=== PATIENT | male | born 1965 | race Caucasian/White ===

== ENCOUNTER 2017-11-26 11:05 | Emergency (ER) | payer OTHER ==
[~2017-11-26] VITALS: Ht 177.8 cm; Wt 86.2 kg
[2017-11-26 11:09] VITALS: BP 145/95
--- NOTE | 2017-11-26 11:15 | NUR ---
BIB [employer] [employer] [facility] FOR C/O ETOH WITHDRAWAL. PT STATES HE WENT ON A 10 DAY BINGE DRINKING STREAK, STOPPED YESTERDAY AT 1600 AND SINCE THEN HE HAS HAD TREMORS, N/V AND ANXIETY. PT DENIES SI/HI, STATES HE WAS 3 MONTHS CLEAN PRIOR TO THIS RELAPSE. ACTIVELY SEEKING HELP WITH REHAB. HX: ETOH ABUSE, HTN, ALCOHOL SZ'S.
[2017-11-26] MEDS ORDERED: ONDANSETRON 4 MG/2 ML VIAL IVP ONE (11:20)
[2017-11-26] MEDS ORDERED: THIAMINE 200 MG/2 ML VIAL IV ONE (11:20)
[2017-11-26] MEDS ORDERED: MULTIVITAMIN 1 TAB PO ONE (11:20)
[2017-11-26] MEDS ORDERED: LORazepam 1 MG TAB PO ONE (11:20)
[2017-11-26] MEDS ORDERED: NACL 0.9% 2,000 ML IV ONE (11:20)
[2017-11-26 11:43] LABS: BASOPHILS % (AUTO) 0.5 % (0.0-2.0); EOSINOPHILS % (AUTO) 0.4 % (0.0-4.0); HEMATOCRIT 40.7 % (36-52); HEMOGLOBIN 13.5 g/dL (12.0-18.0); LYMPHOCYTES # (AUTO) 1.3 K/uL (2.0-11.5); LYMPHOCYTES % (AUTO) 20.4 % (20.5-51.1); MEAN CORPUSCULAR HEMOGLOBIN 29 pg (27-31); MEAN CORPUSCULAR HGB CONC 33 g/dL (33-37); MEAN CORPUSCULAR VOLUME 88.4 fL (80-94); MONOCYTES # (AUTO) 0.4 K/uL (0.8-1.0); MONOCYTES % (AUTO) 5.7 % (1.7-9.3); NEUTROPHILS # (AUTO) 4.7 K/uL (1.8-7.7); PLATELET COUNT (AUTO) 154 K/uL (140-450); RED CELL DISTRIBUTION WIDTH 14.3 % (11.6-13.7); WHITE BLOOD COUNT (AUTO) 6.5 K/uL (4.8-10.8)
[2017-11-26] MEDS ORDERED: FOLIC ACID 1 MG TAB PO SCH (11:55)
[2017-11-26 11:58] LABS: ALBUMIN 3.9 g/dL (3.4-5.0); ANION GAP 17.7 (8-16); CARBON DIOXIDE 21.3 mmol/L (21-32); CREATININE 0.9 mg/dL (0.7-1.3); MAGNESIUM 1.3 mg/dL (1.8-2.4); PHOSPHORUS 3.1 mg/dL (2.5-4.9)
[2017-11-26] MEDS ORDERED: FOLIC ACID 1 MG TAB PO ONE (12:00)
[2017-11-26 13:10] LABS: APPEARANCE,URINE CLEAR (CLEAR); BILIRUBIN,URINE NEGATIVE (NEGATIVE); BLOOD, URINE TRACE-I (NEGATIVE); COLOR,URINE YELLOW (YELLOW); LEUKOCYTE ESTERASE ,URINE NEGATIVE (NEGATIVE); NITRITE, URINE NEGATIVE (NEGATIVE); UGLUCOSE NEGATIVE (NEGATIVE)
[2017-11-26 13:16] LABS: BARBITURATE, URINE NEG. ng/ml (NEG <=200); BENZODIAZEPINE, URINE NEG. ng/mL (NEG <=200); CANNABINOID, URINE NEG. ng/mL (NEG <=50); COCAINE, URINE NEG. ng/mL (NEG <=300); OPIATE, URINE NEG. ng/mL (NEG <=2000); PHENCYCLIDINE SCREEN,URINE NEG. ng/mL (NEG <=25)
[2017-11-26 13:20] LABS: RBC,URINE 0-5 (RARE) /HPF (0-5); WBC,URINE 0-5 (RARE) /HPF (0-5)
[2017-11-26] MEDS ORDERED: POTASSIUM CHLORIDE 10 MEQ TABER PO ONE (13:25)
[2017-11-26 13:53] VITALS: BP 135/94
--- NOTE | 2017-11-26 13:53 | NUR ---
Patient discharged with v/s stable. Written and verbal after care instructions given and explained. Patient alert, oriented and verbalized understanding of instructions. Ambulatory with steady gait. All questions addressed prior to discharge. ID band removed. Patient advised to follow up with PMD. Rx of zofran and librium given. Patient educated on indication of medication including possible reaction and side effects. Opportunity to ask questions provided and answered.
[2017-11-27] MEDS ORDERED: FOLIC ACID 1 MG TAB PO SCH (09:00)
== END 2017-11-26 13:53 | disposition home or self-care (01) ==
LOC: MED 11:05
DX: F10.10 Alcohol abuse, uncomplicated (principal); K85.90 Acute pancreatitis without necrosis or infection, unspecified; E87.6 Hypokalemia
CPT/HCPCS: 36415; 71045; 80053; 80305; 81001; 83690; 83735; 84100; 84484; 85025; 96361; 96374; 96375; 99285; G0482; J2405; J3411; Q0092

== ENCOUNTER 2018-01-27 09:12 | Emergency (ER) | payer OTHER ==
[~2018-01-27] VITALS: Ht 177.8 cm; Wt 86.2 kg
--- NOTE | 2018-01-27 09:17 | NUR ---
PT BIBA BLS TO BED 1
[2018-01-27 09:20] VITALS: BP 105/71
--- NOTE | 2018-01-27 09:25 | NUR ---
PT. BIB ALS DUE TO ETOH AND ALOC. AMBULANCE PERSONNEL STATES " WE FOUND HIM IN AN ALLEY ALTERED SO WE BROUGHT HIM IN". PT. ARRIVES AWAKE , WITH SLURRED SPEECH. PT STATES " I DRANK ALMOST A WHOLE BOTTLE OF VODKA, I DRINK EVERY DAY". PT. DENIES ANY N/V/D. PT. DENIES ANY PAIN AT THIS TIME. VSS. PT. STATES "I JUST WANT TO REST". PT. DENEIS ANY FALL OR INJURY , NO BLEEDING NOTED OR BRUISING. RR EVEN AND UNLABORED. WILL CONTINUE TO MONITOR. SAFETY PRECAUTIONS INITIATED. PUPILS EQUAL ROUND AND REACTIVE TO LIGHT 2MM BRISK. VSS.
--- NOTE | 2018-01-27 10:15 | NUR ---
PT. TAKEN TO CT SCAN VIA GURNEY BY [employer].
--- NOTE | 2018-01-27 10:26 | NUR ---
PT RETURNED FROM CT
--- NOTE | 2018-01-27 10:45 | NUR ---
PT. UNABLE TO PROVIDE URINE AT THIS TIME; URINAL PROVIDED . ER MD ROACH NOTIFIED. WILL CONTINUE TO MONITOR. VSS AT THIS TIME.
[2018-01-27 10:52] LABS: BASOPHILS # (AUTO) 0.1 K/uL (0.00-0.22); EOSINOPHILS # (AUTO) 0.1 K/uL (0-0.4); EOSINOPHILS % (AUTO) 1.5 % (0.0-4.0); HEMATOCRIT 40.4 % (36-52); HEMOGLOBIN 13.3 g/dL (12.0-18.0); LYMPHOCYTES # (AUTO) 2.7 K/uL (2.0-11.5); LYMPHOCYTES % (AUTO) 53.2 % (20.5-51.1); MEAN CORPUSCULAR HEMOGLOBIN 30 pg (27-31); MEAN CORPUSCULAR HGB CONC 33 g/dL (33-37); MEAN CORPUSCULAR VOLUME 91.3 fL (80-94); MONOCYTES # (AUTO) 0.2 K/uL (0.8-1.0); MONOCYTES % (AUTO) 4.3 % (1.7-9.3); PLATELET COUNT (AUTO) 395 K/uL (140-450); RED BLOOD CELL COUNT(AUTO) 4.42 MIL/uL (4.20-6.10); RED CELL DISTRIBUTION WIDTH 15.8 % (11.6-13.7)
[2018-01-27 11:07] LABS: ANION GAP 15.4 (8-16); CARBON DIOXIDE 22.8 mmol/L (21-32); CHLORIDE 112 mmol/L (98-107); CREATININE 0.8 mg/dL (0.7-1.3); GFR ARICAN-AMERICAN 132 mL/min (>90); GLUCOSE 115 mg/dL (74-106); POTASSIUM 3.2 mmol/L (3.5-5.1); SODIUM SERUM 147 mmol/L (136-145); UREA NITROGEN, BLOOD 8 mg/dL (7-18)
[2018-01-27 11:18] LABS: ALBUMIN 3.4 g/dL (3.4-5.0); ASPARTATE AMINOTRANSFERASE 51 U/L (15-37); TOTAL BILIRUBIN 0.1 mg/dL (0.0-1.0)
[2018-01-27 11:19] LABS: ACETAMINOPHEN < 0.5 ug/ml (10-30)
--- NOTE | 2018-01-27 11:19 | NUR ---
NAZANIN LOMBARDO CALLED FROM LAB WITH A CRITICAL ALCOHOL SERUM: [id number]. ER MD DORMAN NOTIFIED
--- NOTE | 2018-01-27 11:33 | NUR ---
PT. RESTING COMFORTABLY IN BED, SLEEPING . RR EVEN AND UNLABORED. VSS. BED IN LOWEST POSITION WILL CONTINUE TO MONITOR.
--- NOTE | 2018-01-27 12:10 | NUR ---
BS; 84 REPORTED TO ER MD ROACH; PROVIDED A ORANGE JUICE BOX, DRANK IT ALL TOLERATED WELL AND VERBALIZED " I AM HUNGRY". ORDER FOR LUNCH TRAY IN PLACE.
[2018-01-27] MEDS ORDERED: NACL 0.9% 1,000 ML IV ONE (12:35)
[2018-01-27] MEDS ORDERED: POTASSIUM CHLORIDE 20% 40 MEQ/15 ML UDC PO ONE (12:35)
--- NOTE | 2018-01-27 13:01 | NUR ---
PT. PROVIDED WITH A LUNCH TRAY, EATING WELL . DENIES ANY N/V/D. WILL CONTINUE TO MONITOR.
--- NOTE | 2018-01-27 13:22 | NUR ---
OKAY PER MD ROACH TO EAT LUNCH TRAY THEN BE D/C AFTER FINISHED WITH MEAL.
--- NOTE | 2018-01-27 13:31 | NUR ---
PT. ABLE TO AMBULATE WITH STEADY GAIT WITHOUT ANY COMPLAINT OF DIZZYNESS AT THIS TIME. PT. AMBULATED TO RESTROOM. OKAY PER MD ORACH TO DISCHARGE AT THIS TIME.
[2018-01-27 13:34] VITALS: BP 104/66
--- NOTE | 2018-01-27 13:34 | NUR ---
Patient discharged with v/s stable. Written and verbal after care instructions given and explained. Patient verbalized understanding. Ambulatory with steady gait. All questions addressed prior to discharge. BUS PASS PROVIDED. DENIES DIZZYNESS , STEADY GAIT. Advised to follow up with PMD.
== END 2018-01-27 13:34 | disposition home or self-care (01) ==
LOC: MED 09:12
DX: R40.4 Transient alteration of awareness (principal)
CPT/HCPCS: 70450; 71045; 80053; 82948; 84484; 85025; 99285; G0480; G0482; Q0092